=== PATIENT | female | born 1950 | race Caucasian/White ===

== ENCOUNTER 2016-10-21 06:56 | Day surgery (SDC) | payer MEDICARE ==
[2016-10-21] VITALS (7 sets, daily range): BP systolic 117–137; BP diastolic 49–78; PULSE 62–74; RESP 11–16; O2SAT 92–97
[~2016-10-21] VITALS: Ht 166.4 cm; Wt 106.6 kg
[~2016-10-21 06:56] MED LIST: ALBU18HF INH; CITA20TA11 PO; CYAN500 PO; CeFAZolin Inj 2 GM in IV Premix 1 EACH IV ONE; FLUT50DI IH; LISI10TA PO; METF1000 PO; SIMV80TA4 PO; TRIA1TAB5 PO; VITA400T9 PO
[2016-10-21] MEDS ORDERED: Lidocaine PF 1% 30 mL Inj ONE (06:57)
[2016-10-21] MEDS ORDERED: Propofol 10,000 mCg/mL 20 mL Inj ONE (06:57)
[2016-10-21] MEDS ORDERED: fentaNYL-PF 50 mCg/mL 2 mL Inj ONE (06:57)
[2016-10-21] MEDS ORDERED: Dexamethasone 4 mg/mL Inj ONE (06:57)
[2016-10-21] MEDS ORDERED: Ondansetron 2 mg/mL 2 mL Inj ONE (06:57)
[2016-10-21] MEDS: Lactated Ringer's 1,000 ML IV SCH ×2 (07:35→08:25)
--- NOTE | 2016-10-21 07:57 | PCM.HPANE ---
Patient Data Date of Service: Oct 21, 2016 Surgeon Admitting Provider: Attending Provider:Luis E Mullen MD Primary Care Physician:[facility] Other Provider:Xuan Ca Anesthesia Reason for Visit Lipoma Of Abdominal Wall Ht/WT & BMI Height (Feet): 5 Height (Inches): 5.50 Weight (Kilograms): 106.6 Body Mass Index 38.00 Allergies Coded Allergies: Sulfa (Sulfonamide Antibiotics) (Verified Allergy, Unknown, hives, 10/19/16) Past Anesthesia History Anesthesia History: Denies:: Abnormal Airway, Anesthesia Reactions, Difficult Intubation Diabetes History Hx Diabetes?: Yes Type of Diabetes: Type II Glycemic Control: Oral Medication Current Bedside Blood Glucose: 139 MRSA MRSA: No Medications Hypertension Medication: Yes Home Meds Incl Beta Adilson: No Reported Medications Vitamin E Mixed (Vitamin E)400 Unit [id number] Unit PO DAILY 10/19/16 Cyanocobalamin (Vitamin B12)500 Mcg Tablet1,000 Mcg PO DAILY 10/19/16 Albuterol Sulfate (Ventolin HFA Inhaler)200 Puff/18 Gm Inhaler2 Puff INH Q4 PRN For Wheezing #1 INHALER Ref 0 10/19/16 Triamterene/HCTZ 75-50 mg 1 Each Tablet1 Tablet PO DAILY Ref 0 10/19/16 Simvastatin 80 Mg [id number] Mg PO HS 30 Days Ref 0 10/19/16 Metformin (Glucophage)1,000 Mg Tablet1,000 Mg PO BID Ref 0 10/19/16 Lisinopril 10 Mg [id number] Mg PO DAILY 30 Days Ref 0 10/19/16 Fluticasone Propionate (Flovent Diskus)50 Mcg Disk.w.dev1 Puff IH BID #1 INHALER Ref 0 10/19/16 Citalopram 20 Mg [id number] Mg PO DAILY Ref 0 10/19/16 History HEENT History: Positive for:: Cataracts (bilateral) Denies:: Abnormal Airway Difficult Intubation Dysphagia Glaucoma Hearing Problem Sinus Problem TMJ Hx of Heart Problems?: Yes Cardiovascular History: Positive for:: Hypertension Denies:: AICD Abdominal Aortic Aneurism Atrial Fibrillation Chest Pain Coronary Artery Disease Edema Heart Murmur Irregular Heartbeat Pacemaker Peripheral Vascular Rheumatic Fever Hx of Respiratory Problem?: Yes Respiratory History: Positive for:: Asthma Use of C-PAP Machine (sleep study done, CPAP not tolerated) Denies:: COPD Emphysema Oxygen Administration Pneumonia Tuberculosis Use of Inhalers / NEBS Hx Neurologic Problems?: No Neurological History: Denies:: Alzheimer's Disease CVA Dementia Dizziness Headaches Multiple Sclerosis Parkinson's Disease Seizures TIA Hx of GI Problems?: Yes Gastrointestinal History: Positive for:: Gall Bladder Disease (gallstones on recent CT scan) Denies:: Gastroesphageal Reflux Gastrointestinal Bleeding Heartburn Hepatitis Hiatal Hernia Other GI Pertinent History: abdominal lipoma x 2 current admission problem Hx of Problems?: No Genitourinary History: Denies:: Kidney Stones Urinary Tract Infection Female Hx: Denies:: Currently (tubal ligation) Problems with Breasts? Skin History: Denies:: History Skin Disorders? Pressure Ulcers Hx Musculoskeletal Problems?: No Musculoskeletal History: Denies:: Back Injury Fibromyalgia Joint Replacement Musculoskeletal Trauma Osteoarthritis Systemic Lupus Hx of Psycho/Social Problems?: Yes Psycho Social History: Positive for:: Anxiety Hx Surgeries?: Yes (amari cataracts, tubal, ) Hx Any Other Health Problems?: Yes Other History: Denies:: Cancer Thyroid Disease History Blood Transfusions: Positive for:: Accept Blood Products? Denies:: Blood Transfusions Hx Diabetes: YesBedside Blood Glucose: 139 Hx Alcohol Use: YesAlcoholic Drinks Per Day: 2-3 drinks on weekendHx Substance Use: Yes (marijuana randomly)Have You Smoked inLast 12 mo: No Stop/Bang S-Snoring: Do You Snore Loudly: No T-Tired: feel tired, fatigued: No O-Obsered: Observed not breath: Yes P-Blood Pressure: treated: Yes B- Body Mass Index > 35 kg/m2: Yes A- Age over 50: Yes N- Neck Large Circumference: No G- Gender Male: No JANEL Total Score: 4 JANEL Risk Assessment: High Risk, =/>3 Yes JANEL Category 4 OutPt Procedure: Yes Risk Assessment Category Category 1A: Patient has history of documented sleep apnea, and HAS NOT received any narcotic, sedative or anesthesia administration during this stay. Category 1B: Patient has history of documented sleep apnea, and HAS received any narcotic , sedative or anesthesia administration during this stay Category 2: Patient has SUSPECTED Obstructive Sleep Apnea, and HAS received any narcotic , sedative or anesthesia administration during this stay. Category 3: Patient has SUSPECTED Obstructive Sleep Apnea and HAS NOT received narcotic, sedative or anesthesia administration during this stay. Category 4: Outpatient in Procedural Areas with known sleep apnea or who screen positive for High Risk via the STOP/BANG questionnaire. Exam Exam Vital Signs Vital Signs Date Time Temp Pulse Resp B/P Pulse Ox O2 Delivery O2 Flow Rate FiO2 10/21/16 07:29 36.0 74 16 137/68 94 Room Air General Appearance: Alert, Oriented X3, Cooperative, No Acute Distress HEENT/AIRWAY: MP 2, Neck Movement (from), Mouth Opening (3fb), Other (tmd 3 fb) Lungs: Clear to Auscultation, Normal Air Movement Heart: Exam Unremarkable, Regular Rate/Rhythm, No Murmurs/Rubs/Gallops Meds/Labs/Diagnostics Admission Meds Current Medications Lactated Ringer's (Lr) 1,000 ml @ 120 mls/hr Q8H20M IV Last administered on t 07:35; Start 10/21/16 at 05:00; Stop 10/21/16 at 13:19 Bedside Blood Glucose: 139 Plan Impression Patient chart reviewed, patient interviewed and anesthestic plan with risks, benefits, and alternatives discussed, and informed consent obtained. NPO Status: 0615 ASA Physical Status: ASA2 Mod Systemic Disease Anesthetic Plan: GA Bene/Risks/Altern/Consents: Yes HP Complete Prior to Induction: Yes Alex Elizabeth MD Oct 21, 2016 07:56
[2016-10-21] MEDS ORDERED: fentaNYL-PF 50 mCg/mL 2 mL Inj IVPUSH PRN (08:25)
[2016-10-21] MEDS ORDERED: HYDROmorphone 1 mg/mL Inj IVPUSH PRN (08:25)
[2016-10-21] MEDS ORDERED: Lactated Ringer's 1,000 ML IV SCH (08:25)
[2016-10-21] MEDS ORDERED: Ondansetron 2 mg/mL 2 mL Inj IVPUSH PRN (08:25)
[2016-10-21] MEDS ORDERED: EPHEDrine Sulfate 50 mg/mL Inj IM PRN (08:25)
[2016-10-21] MEDS ORDERED: EPHEDrine Sulfate 50 mg/mL Inj IVPUSH PRN (08:25)
[2016-10-21] MEDS ORDERED: Atropine 0.4 mg/mL Inj IVPUSH PRN (08:25)
[2016-10-21] MEDS ORDERED: Labetalol 5 mg/mL 4 mL Inj IV PRN (08:25)
[2016-10-21] MEDS ORDERED: Phenylephrine 10,000 mCg/mL Inj IVPUSH PRN (08:25)
[2016-10-21] MEDS ORDERED: Albuterol 2.5 mg/3 mL Inhalation Solution NEB PRN (08:25)
[2016-10-21] MEDS ORDERED: Lactated Ringer's 500 ML IV PRN (08:25)
[2016-10-21] MEDS ORDERED: Bupivacaine-MPF 0.25%/EPI 30 mL Inj INJ ONE (08:40)
[2016-10-21] MEDS ORDERED: oxyCODONE-Acetamin 5-325 mg Tablet PO PRN (09:05)
--- NOTE | 2016-10-21 10:20 | OP ---
[address] [address] OPERATIVE REPORT PATIENT: MADHAV GARCIA : 1950 MR#: [id number] ADMIT: 10/21/2016 JOB ID: [id number] DATE OF SURGERY: 10/21/2016 ANESTHESIA: General. PREOPERATIVE DIAGNOSIS(ES): Left upper quadrant abdominal wall lipoma x2. POSTOPERATIVE DIAGNOSIS(ES): Left upper quadrant abdominal wall lipoma x2. OPERATIVE PROCEDURE: Excision of left upper quadrant abdominal wall lipomas. SURGEON: Dr. Luis E Mullen. PROPERTY AND EQUIPMENT CLERK: Jarrod Petersen PA-C (the [facility]ws faculty assistant was required for the safe and timely completion of the case). COMPLICATIONS: None. ESTIMATED BLOOD LOSS: Less than 5 mL. CONDITION: Satisfactory. SPECIMEN: Left upper quadrant abdominal wall lipoma x2. FINDINGS: There was a 13.5 x 8.5 x 2.5 cm lipoma that was removed as well as a 3 x 1.5 x 1 cm. These were both in the left upper quadrant but removed through separate incisions. INDICATIONS/SIGNIFICANT HISTORY: The patient is a 66-year-old female, who over the past few years has noted a large lump in the left upper quadrant. A second small lump began to develop. It became increasingly symptomatic and she sought elective removal. OPERATIVE TECHNIQUE: The patient was taken into the operating room and placed in the supine position. General anesthesia was administered and preoperative antibiotics were given. The abdomen was prepped and draped in a standard surgical fashion. A procedure pause performed. Anesthetized the skin over the lumps. A transverse incision was made over the larger of these two and dissection carried down through the skin. This is very superficial and was circumferentially dissected free. Hemostasis was achieved using electrocautery. Attention was then turned to the smaller lump. A small incision was made over this and this again was removed in a similar fashion. The subcutaneous space in the larger excision site was then reapproximated using 3-0 Vicryl. The skin was closed using 4-0 Monocryl for both of these. The entire procedure was well tolerated without complication. [facility]
--- NOTE | 2016-10-21 10:47 | PCM.ANEP1 ---
Post Anesthesia Phase 1 PACU Phase 1 Assessment Date of Service: Oct 21, 2016 Vital Signs Vital Signs Date Time Temp Pulse Resp B/P Pulse Ox O2 Delivery O2 Flow Rate FiO2 10/21/16 09:40 63 12 127/72 92 Room Air 10/21/16 09:35 62 13 124/49 95 Room Air 10/21/16 09:30 36.2 66 16 134/78 96 Room Air 10/21/16 09:25 69 11 129/64 97 Simple Mask 6 10/21/16 09:20 72 14 131/66 97 Simple Mask 8 10/21/16 09:15 36.7 117/61 10/21/16 07:29 36.0 74 16 137/68 94 Room Air Anesthetic Administered: GA Level of Alertness: Awake, talking FOSTER's with Equal Strength: Yes Pain: No Nausea or Vomiting: No Oxygen Delivery: Room Air Lungs: Clear to Auscultation, Normal Air Movement Dermatome Level: Full Sensation Alex Elizabeth MD Oct 21, 2016 10:47
--- NOTE | 2016-10-21 11:26 | PCM.ANEP2 ---
Post Anesthesia Evaluation ASA/CMS Post Anesthesia Date of Service: Oct 21, 2016 VS in Patient's Normal Range?: Yes Resp Stable; Airway Patent?: Yes CV Function & Hydration Stable: Yes Mental Status Recovered?: Yes Pain control Satisfactory?: Yes N/V Control Satisfactory?: Yes Alex Elizabeth MD Oct 21, 2016 11:26
--- NOTE | 2016-10-25 13:15 | PATH ---
SURGICAL PATHOLOGY Attending Physician:Luis E Mullen MD CASE STATUS: Signed Out PATIENT NAME: MADHAV GARCIA PID: [id number] : 1950 DATE COLLECTED:10/21/2016 21:06 SPECIMEN: Soft Tissue, Lipoma CLINICAL HISTORY: LEFT UPPER QUADRANT MASS X2 1). LEFT UPPER QUADRANT ABDOMINAL LIPOMAS FINAL DIAGNOSIS: Left Upper Quadrant Abdominal Lipomas: Mature adipose tissue consistent with lipomas. ICD10 D17.79 GROSS DESCRIPTION: The specimen is received in one formalin filled container labeled with the patient's name, sublabeled specimen consists of multiple fragments of nye, soft tissue which aggregate to 11.0 x 11.0 x 4.0 CM. The specimen is inked blue 4 customer success representative sections are submitted in 2 cassettes. 10/21/2016 [facility] ICD-9 CODES: CPT CODES: 1: 90259 Electronically Signed Out Gabriele Loredo MD [facility] Pathology [facility] [address], [place] [address] Technical component performed at [facility], [facility] [address], [place], [address]
== END 2016-10-21 23:59 | disposition home or self-care (01) ==
LOC: SAS 06:56
PROVIDERS: ATTEND General Practice
DX: D17.1 Benign lipomatous neoplasm of skin and subcutaneous tissue of trunk (principal); I10 Essential (primary) hypertension; E78.00 Pure hypercholesterolemia, unspecified; J45.909 Unspecified asthma, uncomplicated; E11.9 Type 2 diabetes mellitus without complications; F41.9 Anxiety disorder, unspecified; F12.90 Cannabis use, unspecified, uncomplicated; Z79.84 Long term (current) use of oral hypoglycemic drugs
CPT/HCPCS: 11403; 11406; 88304; J0690; J1100; J2405; J3010; J7120

== ENCOUNTER 2016-12-19 18:24 | Emergency (ER) | payer MEDICARE ==
[~2016-12-19] VITALS: Ht 166.4 cm; Wt 106.8 kg
[~2016-12-19 18:24] MED LIST changes: -CeFAZolin Inj 2 GM in IV Premix 1 EACH IV ONE
[2016-12-19 18:39] VITALS: BP 160/82; PULSE 75; RESP 20; O2SAT 97
--- NOTE | 2016-12-19 19:01 | ED.REPORT ---
HPI-General Illness Date of Service Dec 19, 2016 ED Provider: Chadd Kaufman MD Pt is a 66 y.o. female with a hx of DM and HTN who presents to the ED c/o right lower extremity pain, rated at a 7 and described as aching, onset 4 weeks ago. She states that the pain is primarily localized to the posterior portion of her right calf, just below the knee, she denies radiation of the pain. She also denies traumatic injury, fever, chills, SOB, diarrhea, constipation, cough, dysuria, hematuria, or numbness and tingling in extremities. Pt states that she was seen previously for the pain and an x-ray was negative for fracture. She denies any hx of DVT or blood disorders. Pt states that she had a recent abdominal surgery for fibroid removal (October 21 2016). Pt has an appointment with her new PCP Tuesday. Nursing Notes Stated Complaint: RIGHT LEG PAIN Chief Complaint: Extremity Trauma Nursing Notes Reviewed: Yes Allergies: Coded Allergies: Sulfa (Sulfonamide Antibiotics) (Verified Allergy, Unknown, hives, 10/19/16) Scheduled Citalopram (Citalopram) 20 Mg Tablet 20 MG PO DAILY Cyanocobalamin (Vitamin B12) 500 Mcg Tablet 1,000 MCG PO DAILY Fluticasone Propionate (Flovent Diskus) 50 Mcg Disk.w.dev 1 PUFF IH BID Lisinopril (Lisinopril) 10 Mg Tablet 10 MG PO DAILY Metformin (Glucophage) 1,000 Mg Tablet 1,000 MG PO BID Simvastatin (Simvastatin) 80 Mg Tablet 80 MG PO HS Triamterene/HCTZ 75-50 mg (Triamterene/HCTZ 75-50 mg) 1 Each Tablet 1 TABLET PO DAILY Vitamin E Mixed (Vitamin E) 400 Unit Tablet 400 UNIT PO DAILY Scheduled PRN Albuterol Sulfate (Ventolin HFA Inhaler) 200 Puff/18 Gm Inhaler 2 PUFF INH Q4 PRN PRN For Wheezing General Time Seen by MD: 19:01 Chief Complaint Other (Lower extremity pain, right) Hx Obtained From: Patient Arrived By: Walk-in Sudden in Onset?: Yes Onset Occurred: More than a week ago... (4 weeks) Symptom Duration: Since onset Location: : Leg right Quality: Aching, Painful Radiation: : Does not radiate Severity: Current: Pain level 7 out of 10 Recent Healthcare: Recent doctor visit Past Medical History Past Medical History Anxiety Reports: Asthma, Diabetes mellitus, Hypertension Past Surgical History Abdominal fibroid Reports: Tubal ligation Smoking History Never Smoker Social History Alcohol Use: "Social" Drug Use: THC Ambulatory Status Independent Review of Systems Full Review of Systems Constitutional: Denies: Chills, Fever Respiratory: Denies: Non-productive cough, Shortness of breath GI: Denies: Constipation, Diarrhea Female: Denies: Dysuria, Hematuria Musculoskeletal: Reports: Extremity pain (Right) Neurologic: Denies: Numbness Complete sys rev & neg: except as marked. Physical Exam Vital Signs Vital Signs Date Time Temp Pulse Resp B/P Pulse Ox O2 Delivery O2 Flow Rate FiO2 12/19/16 18:39 39.6 75 20 160/82 97 Initial VS: Reviewed Abdomen / GI: No distention Extremities: Vascular intact, Neuro intact Skin: Warm, Dry, No cyanosis Neurologic: Alert, Oriented, Nonfocal Psychiatric: Mood/affect normal, Behavior normal, Normal thought content General/Constitutional: Awake, Alert, No acute distress, Well appearing, Well developed, Well hydrated, Well nourished, Not toxic appearing Appearance / Presentation: Positive: Obese, morbidly Respiratory / Chest: Atraumatic, Breath sounds NL, Breath sounds = bilat, No respiratory distress Speaking comfortably with unlabored respirations Lower Extremity / Pelvis / MS: Atraumatic, Inspection NL, Full range of motion , No swelling, Neurologic intact, Vascular intact Right Leg / Calf: Positive: Tenderness present..., Negative: Ecchymosis present, Erythema present, Warmth present Good and equal sensation to bilateral lower extremities. No bony tendernes to RLE. Diffuse tenderness to palpation to posterior portion of distal RLE. Interpretation & Diagnostics US Focused Lower Ext Venous IMPRESSION: No DVT found right leg. Dictated by: Ghulam Yan M.D. on 12/19/2016 at 21:10 Approved by: Ghulam Yan M.D. on 12/19/2016 at 21:11 US Soft Tissue/Musculoskeletal Re-Eval/Medical Decision Med Decision/Clinical Course 66-year-old female with right lower extremity pain. No bony tenderness; negative x-ray recently per patient report. Discussed not repeating x-rays here and patient in agreement. Ultrasound of the patient's right lower extremity with no evidence of DVT. Good pulses throughout. Given this, plan discharge home with PCP follow-up this week for further management and evaluation. Source of Hx: Old records Time of Eval: 22:03 Re-Evaluation/Progress Note: Pt rechecked. Discussed imaging and plan for discharge, pt understands and agrees with plan. Counseled Regarding: Diagnosis, Lab results, Need for follow-up, When/why to return to ED Discharge & Departure Primary Impression: Pain of right lower extremity Disposition: Home Discharge Condition All VS Reviewed: Yes Condition: No Change Additional Instructions: Thank you for entrusting us with your care today Your evaluation and ultrasound were reassuring. No deep vein thrombosis was seen and I do not believe there is a serious mechanism for your pain. I recommend that you take Naproxen or ibuprofen as directed for pain. Keep your Tuesday appointment with your primary care provider, discuss your time here in the ED. Return if you develop increasing pain, shortness of breath, chest pin, decreased sensation your extremity or any new or worsening symptoms. Referrals: [facility] (PCP) Hammad Attestation Portions of this note were transcribed by Andreina Gomez. I, Dr. Kaufman personally performed the history, physical exam and medical decision-making; I reviewed and confirmed the accuracy of the information in the transcribed note. Signed by: Hammad Sears, 12/19/2016 and 2204. copies to: [facility] Chadd Kaufman MD Dec 19, 2016 19:01 ANDREINA GOMEZ Dec 19, 2016 19:10
--- NOTE | 2016-12-19 21:12 | DRSVH ---
PROCEDURE: US VEINOUS LEG DUPLEX UNILATERAL, RIGHT INDICATIONS: evaluate for DVT TECHNIQUE: Real-time imaging, as well as color and pulse Doppler interrogation, were performed of the lower extr emity deep veins from the inguinal ligament to the popliteal fossa. COMPARISON: None. FINDINGS: The deep veins are normally compressible, and free of intraluminal thrombus. Color and pu lse Doppler demonstrate normal phasic intraluminal flow. There is normal augmentation response to di stal compression maneuver. IMPRESSION: No DVT found right leg. Dictated by: Ghulam Yan M.D. on 12/19/2016 at 21:10 Approved by: Ghulam Yan M.D. on 12/19/2016 at 21:11
[2016-12-19 22:32] VITALS: BP 132/81; PULSE 67; RESP 18; O2SAT 94
== END 2016-12-19 22:33 | disposition home or self-care (01) ==
LOC: SED 18:24
DX: M79.604 Pain in right leg (principal); W18.39XA Other fall on same level, initial encounter; Y93.89 Activity, other specified; Y92.009 Unspecified place in unspecified non-institutional (private) residence as the place of occurrence of the external cause; Y99.8 Other external cause status; I10 Essential (primary) hypertension; J45.909 Unspecified asthma, uncomplicated; E11.9 Type 2 diabetes mellitus without complications; F41.9 Anxiety disorder, unspecified; Z79.84 Long term (current) use of oral hypoglycemic drugs; Z88.2 Allergy status to sulfonamides